=== PATIENT | female | born 1940 | race Caucasian/White ===

== ENCOUNTER 2023-10-23 12:55 | Day surgery (SDC) | payer MEDICARE ==
[2023-10-23] MEDS ORDERED: Depo-Medrol 40 MG/ML IM ONE (12:56)
[2023-10-23] MEDS ORDERED: Xylocaine-Mpf 2% 5 Ml Vial IJ ONE (12:56)
[2023-10-23] MEDS ORDERED: DIPRIVAN 200 MG/20 ML IV ONE (15:04)
[2023-10-23] MEDS ORDERED: Lactated Ringers 1,000 ML IV ONE (15:13)
--- NOTE | 2023-10-23 16:54 | XRAY ---
Indication: Bilateral L4-S1 MBB. Intraoperative fluoroscopy provided for 13 seconds. Single digital spot image submitted for interpretation demonstrates posterior needle tips projecting over the expected left and right L4-S1 nerve roots. Correlate with intraoperative findings/report.
--- NOTE | 2023-10-23 17:32 | XRAY ---
13 seconds of fluoroscopy was used in surgery for a bilateral L4-S1 MBB.
== END 2023-10-23 15:35 | disposition home or self-care (01) ==
LOC: SDC-PAIN 12:55
PROVIDERS: ATTEND Psychiatry & Neurology Pain Medicine
DX: M47.816 Spondylosis without myelopathy or radiculopathy, lumbar region (principal); M47.817 Spondylosis without myelopathy or radiculopathy, lumbosacral region
CPT/HCPCS: 64493; 64494; 72020; 77002; J2704

== ENCOUNTER 2023-11-19 17:11 | Emergency (ER) | payer MEDICARE ==
--- NOTE | 2023-11-19 16:36 | XRAY ---
Indication: Bilateral L4-S1 MBB. Intraoperative fluoroscopy provided for 12 seconds. Single digital spot image submitted for interpretation demonstrates posterior needle tips projecting over the expected left and right L4-S1 nerve roots. Correlate with intraoperative findings/report.
--- NOTE | 2023-11-19 16:56 | XRAY ---
12 seconds of fluoroscopy was used in surgery for a bilateral L4-S1 MBB.
[~2023-11-19 17:11] MED LIST: DIPRIVAN 200 MG/20 ML IV ONE
[2023-11-19] MEDS ORDERED: BUPIVACAINE 0.5% VIAL IJ ONE (17:12)
[2023-11-19] MEDS ORDERED: Depo-Medrol 40 MG/ML IM ONE (17:12)
[2023-11-19 17:50] VITALS: TEMP 97.4
[2023-11-19 18:02] LABS: ALBUMIN 4.1 g/dL (3.5-5.0); ANION GAP 14.4 MEQ/L (5-15); Absolute Neutrophil Ct (ANC) 4.21 x10^3/uL (1.56-6.13); BASOPHIL % 0.5 % (0.1-1.2); BILIRUBIN,TOTAL 0.9 mg/dL (0.2-1.3); Basophil (Absolute #) 0.03 x10^3/uL (0.01-0.08); Calcium 9.8 mg/dL (8.4-10.2); Creatinine 1 0.89 mg/dL (0.52-1.04); EST GLOMERULAR FILTRATION RATE 63.5 ML/MIN; Eosinophil (Absolute #) 0.17 x10^3/uL (0.04-0.36); Hematocrit 28.9 % (34.1-44.9); Hemoglobin 8.7 g/dL (11.2-15.7); IMMATURE GRAN # 0.01 x10^3u/L (0.001-0.031); IMMATURE GRAN % 0.2 % (0.001-0.429); Lymphocyte (Absolute #) 0.96 x10^3/uL (1.18-3.74); Mean Cell Volume 78.1 fL (79.4-94.8); Mean Corpuscular Hemoglobin 23.5 pg (25.6-32.2); Mean Corpuscular Hgb Concent. 30.1 g/dL (32.2-35.5); Mean Platelet Volume 9.1 fL (9.4-12.3); Monocyte (Absolute #) 0.27 x10^3/uL (0.24-0.86); Monocytes % 4.8 % (4.7-12.5); Neutrophil % 74.5 % (34.0-71.1); Platelet Count 261 x10^3/uL (182-369); Potassium 3.8 mmol/L (3.5-5.1); Red Cell Distribution Width 18.2 % (11.7-14.4); Total Protein 6.7 g/dL (6.3-8.2); White Blood Count 5.7 x10^3/uL (3.98-10.04)
[2023-11-19] MEDS ORDERED: Lactated Ringers 1,000 ML IV ONE (18:04)
--- NOTE | 2023-11-19 18:05 | ERPHSYRPT ---
- History of Present Illness Time Seen by Provider: 11/19/23 17:52 Source: patient, old records, other (OR staff/anesthesia) Exam Limitations: no limitations Patient Subjective Stated Complaint: Patient brought to ER by PACU staff for evaluation following an abnormal EKG in PACU. Patient with no complaints; is asymptomatic. Triage Nursing Assessment: Patient is alert and oriented. Denies pain. Skin tone normal. Assisted out of bed to use the bedside commode and then back to bed without difficulities. No SOB. IV patent to right arm. Physician History: 83-year-old female with history of coronary artery disease with no stenting, hypertension is brought in the ER from PACU after patient had a back injection for seizure in a [place] and in recovery it was found abnormal rhythm. Patient does not have any EKG on file. Patient denies any chest pain palpitations or shortness of breath. Does report taking metoprolol before which was stopped few months ago by Dr. Sweeney because of getting bradycardia. Denies any difficulty breathing. No swelling of lower extremities. EKG showed some questionable changes in the lateral leads with mild elevation and PACs. Allergies/Adverse Reactions: No Known Drug Allergies Allergy (Verified 11/19/23 17:22) Home Medications: Albuterol Sulfate [Proair Digihaler] 2 puffs IH Q6H PRN PRN 11/19/23 [History] Aspirin EC 81 mg [Ecotrin 81 mg] 1 tab PO WEEKLY 11/19/23 [History] Ca/D3/Mag Ox/Zinc/Malt House Kiln Operator/Lucien/Bor [Calcium 600-D3 Plus Caplet] 1 tab PO DAILY 11/19/23 [History] Fluoxetine HCl 1 tab PO DAILY 11/19/23 [History] Gabapentin [Neurontin ] 200 mg PO TID 11/19/23 [History] Hydrocodone/Acetaminophen [Hydrocodone-Acetamin 5-325 mg] 1 tab PO Q6HPRN PRN 11/19/23 [History] Isosorbide Mononitrate 1 tab PO BID 11/19/23 [History] Levothyroxine Sodium 50 Mcg [Synthroid 50 Mcg] 1 tab PO DAILY 11/19/23 [H istory] Metoprolol Tartrate 25 mg [Lopressor 25MG Tab] 1 tab PO BID 11/19/23 [History] Nitroglycerin 0.4 mg (Ed) [Nitrostat 0.4 MG (ED)] 1 tab SL Q5MIN PRN MR X 3 PRN 11/19/23 [History] [place]-3 Fatty Acids [[place]-3] 1 tab PO DAILY 11/19/23 [History] Omeprazole 1 tab PO DAILY 11/19/23 [History] Pumpkin Seed Extract/Soy Germ [Azo Bladder Control Capsule] 1,000 mg PO DAILY 11/19/23 [History] Rosuvastatin Calcium 1 tab PO HS 11/19/23 [History] Hx Tetanus, Diphtheria Vaccination/Date Given: Yes Immunizations Up to Date: Yes Travel Risk - International Travel Have you traveled outside of the country in past 3 weeks: No - Emerging Infectious Disease Are you exhibiting symptoms associated with any current EIDs: No - Review of Systems Constitutional: No Symptoms Ears, Nose, & Throat: No Symptoms Respiratory: No Symptoms Cardiac: No Symptoms Abdominal/Gastrointestinal: No Symptoms Musculoskeletal: Arthralgias, Back Pain Skin: No Symptoms Neurological: No Symptoms Endocrine: No Symptoms Hematologic/Lymphatic: No Symptoms - Past Medical History Pertinent Past Medical History: Yes Neurological History: Peripheral Neuropathy Cardiac History: High Cholesterol, Hypertension Endocrine Medical History: Hypothyroidism GI Medical History: GERD Psycho-Social History: Anxiety, Depression - Past Surgical History Past Surgical History: Yes Female Surgical History: Hysterectomy, Other Other Surgical History: bladder surgery, breast biopsy (negative), - Social History Smoking Status: Never smoker Exposure to second hand smoke: No Drug Use: none - Social Determinants of Health Will the patient participate in the screening: Yes Do you worry about a steady place to live?: No Do you have any problems with any of the following?: No known problems In the past 12 months,have you had to go without utilities?: No Transportation Issues: No Has anyone in your support network made you feel unsafe?: No Have you or anyone in your house had to go without enough: No - Nursing Vital Signs Nursing Vital Signs: Initial Vital Signs Temperature 97.4 F 11/19/23 17:11 Pain Scale Pain Intensity 0 - Physical Exam General Appearance: no apparent distress, alert Eye Exam: PERRL/EOMI Ears, Nose, Throat Exam: normal ENT inspection Neck Exam: normal inspection, non-tender, supple, full range of motion Respiratory Exam: normal breath sounds, lungs clear Cardiovascular Exam: regular rate/rhythm, normal heart sounds Gastrointestinal/Abdomen Exam: soft, normal bowel sounds, No tenderness Back Exam: normal inspection, normal range of motion Extremity Exam: normal inspection, normal range of motion Neurologic Exam: alert, oriented x 3, cooperative Skin Exam: normal color SpO2 Interpretation: normal SpO2: 98 O2 Delivery: Room Air - Course EKG Interpreted by Me: RATE (70), Sinus Rhythm, Left [place] Deviation (PACs), Right Bundle Branch Block, Non-specific ST Changes, Other (Second EKG time 1801. Sinus rhythm 72 bpm, left axis deviation, right bundle branch block, nonspecific ST changes in the lateral leads) Ordered Tests: Active Orders 24 hr Category Date Time Status Warehouse Unloader STAT Care 11/19/23 18:04 Active EKG-ER Only STAT Care 11/19/23 18:04 Active IV Insertion STAT Care 11/19/23 18:04 Active CHEST 1 VIEW (PORTABLE) Stat Exams 11/19/23 17:[address] GUIDE NEEDLE PLACE-PMG Routine Exams 11/19/23 15:02 Completed SINGLE VIEW SPINE Routine Exams 11/19/23 15:02 Completed CBC W DIFF Stat Lab 11/19/23 17:50 Completed CMP Stat Lab 11/19/23 17:50 Completed NT PRO BNPII Stat Lab 11/19/23 17:50 Completed TROPONIN Q4H Lab 11/19/23 17:50 Completed TROPONIN Q4H Lab 11/19/23 22:00 Ordered TROPONIN Q4H Lab 11/20/23 02:00 Ordered UA W/RFX UR CULTURE Stat Lab 11/19/23 18:02 Completed EKG STAT RT 11/19/23 16:27 Completed Medication Summary Discontinued Medications Generic Name Dose Route Start Last Admin Trade Name Freq PRN Reason Stop Dose Admin Aspirin 324 mg 11/19/23 18:46 11/19/23 18:52 Aspirin 81 Mg Tab.Chew PO 11/19/23 18:47 324 mg STAT ONE Administration Aspirin Confirm 11/19/23 18:51 Aspirin 81 Mg Tab.Chew Administered 11/19/23 18:52 Dose 324 mg .ROUTE .STK-MED ONE Lactated Ringer's Confirm 11/19/23 18:04 Lactated Ringers Administered 11/19/23 18:05 Dose 1,000 mls @ ud IV .STK-MED ONE Nitroglycerin 0.5 gm 11/19/23 18:46 11/19/23 18:52 Nitroglycerin 1 Gm Packet TOP 11/19/23 18:47 0.5 gm STAT ONE Administration Nitroglycerin Confirm 11/19/23 18:51 Nitroglycerin 1 Gm Packet Administered 11/19/23 18:52 Dose 1 gm .ROUTE .STK-MED ONE Propofol Confirm 11/19/23 15:47 Propofol 10 Mg/Ml 20ml Vial Administered 11/19/23 15:48 Dose 200 mg IV .STK-MED ONE Propofol Confirm 11/19/23 15:58 Propofol 10 Mg/Ml 20ml Vial Administered 11/19/23 15:59 Dose 200 mg IV .STK-MED ONE Lab/Rad Data: Laboratory Result Diagrams 11/19/23 17:50 11/19/23 17:50 Laboratory Results 11/19/23 11/19/23 11/19/23 Range/Units 18:02 17:50 17:50 WBC 5.7 (3.98-10.04) x10^3/uL RBC 3.70 L (3.93-5.22) x10^6/uL Hgb 8.7 L (11.2-15.7) g/dL Hct 28.9 L (34.1-44.9) % MCV 78.1 L (79.4-94.8) fL MCH 23.5 L (25.6-32.2) pg MCHC 30.1 L (32.2-35.5) g/dL RDW 18.2 H (11.7-14.4) % Plt Count 261 (182-369) x10^3/uL MPV 9.1 L (9.4-12.3) fL Gran % 74.5 H (34.0-71.1) % Immature Gran % (Auto) 0.2 (0.001-0.429) % Nucleat RBC Rel Count 0.0 (0.00-0.2) % Eos # (Auto) 0.17 (0.04-0.36) x10^3/uL Immature Gran # (Auto) 0.01 (0.001-0.031) x10^3u/L Absolute Lymphs (auto) 0.96 L (1.18-3.74) x10^3/uL Absolute Monos (auto) 0.27 (0.24-0.86) x10^3/uL Absolute Nucleated RBC 0.00 (0.00-0.012) x10^3u/L Lymphocytes % 17.0 L (19.3-51.7) % Monocytes % 4.8 (4.7-12.5) % Eosinophils % 3.0 (0.7-5.8) % Basophils % 0.5 (0.1-1.2) % Absolute Granulocytes 4.21 (1.56-6.13) x10^3/uL Basophils # 0.03 (0.01-0.08) x10^3/uL Sodium (135-145) mmol/L Potassium (3.5-5.1) mmol/L Chloride (98-107) mmol/L Carbon Dioxide (22-30) mmol/L Anion Gap (5-15) MEQ/L BUN (7-17) mg/dL Creatinine (0.52-1.04) mg/dL Estimated GFR ML/MIN Glucose (74-106) mg/dL Calcium (8.4-10.2) mg/dL Total Bilirubin (0.2-1.3) mg/dL AST (14-36) U/L ALT (0-35) U/L Alkaline Phosphatase (38-126) U/L Troponin I (0.000-0.033) ng/mL NT-Pro-B Natriuret Pep 1650 (<300) pg/mL Serum Total Protein (6.3-8.2) g/dL Albumin (3.5-5.0) g/dL Urine Color Yellow (Yellow) Urine Appearance Clear (Clear) Urine pH 7.0 (4.6-8.0) Ur Specific [place] <=1.005 (1.005-1.030) Urine Protein Negative (Negative) Urine Glucose (UA) Negative (Negative) mg/dL Urine Ketones Trace A (Negative) Urine Blood Negative (Negative) Urine Nitrite Negative (Negative) Urine Bilirubin Negative (Negative) Urine Urobilinogen 0.2 (0.2) mg/dL Ur Leukocyte Esterase Trace A (Negative) U Hyaline Cast (Auto) NONE SEEN (0-2) /LPF Urine Microscopic RBC 0-2 (0-5) /HPF Urine Microscopic WBC 0-2 (0-5) /HPF Ur Epithelial Cells None Seen (None Seen) /HPF Urine Bacteria None Seen (None Seen) /HPF Urine Culture Reflexed NO (NO) 11/19/23 11/19/23 Range/Units 17:50 17:50 WBC (3.98-10.04) x10^3/uL RBC (3.93-5.22) x10^6/uL Hgb (11.2-15.7) g/dL Hct (34.1-44.9) % MCV (79.4-94.8) fL MCH (25.6-32.2) pg MCHC (32.2-35.5) g/dL RDW (11.7-14.4) % Plt Count (182-369) x10^3/uL MPV (9.4-12.3) fL Gran % (34.0-71.1) % Immature Gran % (Auto) (0.001-0.429) % Nucleat RBC Rel Count (0.00-0.2) % Eos # (Auto) (0.04-0.36) x10^3/uL Immature Gran # (Auto) (0.001-0.031) x10^3u/L Absolute Lymphs (auto) (1.18-3.74) x10^3/uL Absolute Monos (auto) (0.24-0.86) x10^3/uL Absolute Nucleated RBC (0.00-0.012) x10^3u/L Lymphocytes % (19.3-51.7) % Monocytes % (4.7-12.5) % Eosinophils % (0.7-5.8) % Basophils % (0.1-1.2) % Absolute Granulocytes (1.56-6.13) x10^3/uL Basophils # (0.01-0.08) x10^3/uL Sodium 137 (135-145) mmol/L Potassium 3.8 (3.5-5.1) mmol/L Chloride 104 (98-107) mmol/L Carbon Dioxide 23 (22-30) mmol/L Anion Gap 14.4 (5-15) MEQ/L BUN 16 (7-17) mg/dL Creatinine 0.89 (0.52-1.04) mg/dL Estimated GFR 63.5 ML/MIN Glucose 92 (74-106) mg/dL Calcium 9.8 (8.4-10.2) mg/dL Total Bilirubin 0.90 (0.2-1.3) mg/dL AST 25 (14-36) U/L ALT 14 (0-35) U/L Alkaline Phosphatase 82 (38-126) U/L Troponin I 0.039 H* (0.000-0.033) ng/mL NT-Pro-B Natriuret Pep (<300) pg/mL Serum Total Protein 6.7 (6.3-8.2) g/dL Albumin 4.1 (3.5-5.0) g/dL Urine Color (Yellow) Urine Appearance (Clear) Urine pH (4.6-8.0) Ur Specific [place] (1.005-1.030) Urine Protein (Negative) Urine Glucose (UA) (Negative) mg/dL Urine Ketones (Negative) Urine Blood (Negative) Urine Nitrite (Negative) Urine Bilirubin (Negative) Urine Urobilinogen (0.2) mg/dL Ur Leukocyte Esterase (Negative) U Hyaline Cast (Auto) (0-2) /LPF Urine Microscopic RBC (0-5) /HPF Urine Microscopic WBC (0-5) /HPF Ur Epithelial Cells (None Seen) /HPF Urine Bacteria (None Seen) /HPF Urine Culture Reflexed (NO) - Progress Progress: unchanged Progress Note: 11/19/23 18:51 83-year-old is evaluated in the ER for irregular rhythm on the monitor after she had a back injection under [place]. Patient remained asymptomatic. She is given aspirin and Nitropaste. EKG showed some questionable elevation in lateral leads. Initial troponin is 0.039. Normal white count, hemoglobin of 8.7. No previous comparison available. Chest x-ray no acute cardiopulmonary findings. Patient remained asymptomatic. Discussed with patient and family about EKG findings and mild elevation in troponin, they would prefer to go to regional. Regional transfer center is called. I would not start her on anticoagulation because of recent epidural injections. 11/19/23 18:57 11/19/23 19:01 Patient discussed with transfer center and is in auto accepted on behalf of Dr. Anushka Portillo Counseled pt/family regarding: lab results, diagnosis, need for follow-up, rad results Medical Desision Making - Independent Historian Additional History obtained from: Child - Discussion of managment Care discussed with:: on-call "doc" Reviewed:: Test results Agreed on:: Treatment plan Will see patient: in ED - Diagnostic Testing Diagnostic test were ordered, analyzed, and reviewed by me: Yes Radiological Interpretation: Interpreted by me, Reviewed by me - Risk of complications The pt has a mod risk of morbidity or mortality based on: Need for prescription drug management - Departure Departure Disposition: Transfer Clinical Impression: NSTEMI (non-ST elevated myocardial infarction) Condition: Stable Critical Care Time: No Referrals: LUTHER IVEY MD [Primary Care Provider] - Follow up/PCP as directed
[2023-11-19 18:19] LABS: Appearance Clear (Clear); Bacteria None Seen /HPF (None Seen); Bilirubin Negative (Negative); Blood Negative (Negative); Epithelial Cells None Seen /HPF (None Seen); Glucose, Urine Negative (Negative); Hyaline Casts NONE SEEN /LPF (0-2); Ketones Trace (Negative); Leukocyte Esterase Trace (Negative); Nitrite Negative (Negative); Protein,Urine Dip Negative (Negative); RBC 0-2 /HPF (0-5); Specific Gravity <=1.005 (1.005-1.030); Urobilinogen 0.2 mg/dL (0.2); WBC 0-2 /HPF (0-5)
[2023-11-19] MEDS ORDERED: NITRO-BID 2% UD PACKETS ONE (18:51)
[2023-11-19] MEDS ORDERED: BABY ASPIRIN 81 MG CHEW ONE (18:51)
[2023-11-19] MEDS: NITRO-BID 2% UD PACKETS TOP ONE (18:52)
[2023-11-19] MEDS: BABY ASPIRIN 81 MG CHEW PO ONE (18:52)
[2023-11-19 18:57] VITALS: O2SAT 98
[2023-11-19 22:02] VITALS: BP 128/76; PULSE 77; RESP 16
--- NOTE | 2023-11-20 08:47 | XRAY ---
Indication: Postop EKG changes. CHF. Comparison: None Portable chest demonstrates marked right hemidiaphragm elevation presumed chronic and bibasilar discoid atelectasis/scarring. Upper lungs clear. Heart not enlarged. Bony thorax intact with osteopenia, mild degenerative changes, and incompletely visualized lumbar dextrorotoscoliosis. Impression: Nonacute chest with chronic features.
== END 2023-11-19 22:35 | disposition short-term general hospital (02) ==
LOC: ED 17:11 → EDSTATUS 17:11 → ED 22:35
DX: I21.4 Non-ST elevation (NSTEMI) myocardial infarction (principal); M47.817 Spondylosis without myelopathy or radiculopathy, lumbosacral region; E78.5 Hyperlipidemia, unspecified; I10 Essential (primary) hypertension; Z79.891 Long term (current) use of opiate analgesic; Z79.899 Other long term (current) drug therapy
CPT/HCPCS: 36000; 36415; 64493; 64494; 71045; 72020; 77002; 80053; 81001; 83880; 84484; 85025; 93005; 93041; 99285; J2704; A9270-GY